=== PATIENT | male | born 1975 | race American Indian/Alaskan Native ===

== ENCOUNTER 2017-05-03 06:12 | Emergency (ER) | payer MEDICAID, OTHER ==
--- NOTE | 2017-05-03 08:25 | C.PDOC ---
History Of Present Illness 42 y/o male presents to ED with complaints of lower back pain. Patient states he missed a step and slipped this morning at 5AM. He reports he landed on his lower back, and his lower back hit the edge of the step. Denies head trauma, neck pain, abdominal pain, hematuria, weakness, numbness or any other physical complaint. Time Seen by Provider: 05/03/17 07:39 Chief Complaint (Nursing): Back Pain History Per: Patient History/Exam Limitations: no limitations Onset/Duration Of Symptoms: Hrs Current Symptoms Are (Timing): Still Present Quality Of Discomfort: Unable To Describe Previous Symptoms: None Associated Symptoms: None Exacerbating Factor(s): Nothing Recent travel outside of the [place]: No Past Medical History Reviewed: Historical Data, Nursing Documentation, Vital Signs Vital Signs: Last Vital Signs Temp 98.5 F 05/03/17 10:41 Pulse 70 05/03/17 10:41 Resp 18 05/03/17 10:41 BP 146/87 05/03/17 10:41 Pulse Ox 100 05/03/17 11:14 - Medical History PMH: No Chronic Diseases Surgical History: No Surg Hx Family History: States: No Known Family Hx - Social History Hx Alcohol Use: Yes Hx Substance Use: No - Immunization History Hx Tetanus Toxoid Vaccination: No Hx Influenza Vaccination: Yes Hx Pneumococcal Vaccination: No Review Of Systems Constitutional: Negative for: Fever, Chills Cardiovascular: Negative for: Chest Pain, Palpitations Respiratory: Negative for: Shortness of Breath Gastrointestinal: Negative for: Nausea, Vomiting, Abdominal Pain, Diarrhea Genitourinary: Negative for: Incontinence, Hematuria Musculoskeletal: Positive for: Back Pain (lower). Negative for: Neck Pain Skin: Negative for: Rash, Jaundice Neurological: Negative for: Weakness, Numbness Physical Exam - Physical Exam Appears: Well, Non-toxic Skin: Warm, Dry, No Ecchymosis Head: Atraumatic, Normacephalic Eye(s): bilateral: Normal Inspection Oral Mucosa: Moist Neck: No Midline Cervical Tenderness, Supple Chest: Symmetrical, No Tenderness Cardiovascular: Rhythm Regular, No Murmur Respiratory: No Decreased Breath Sounds, No Rales, No Rhonchi, No Wheezing Gastrointestinal/Abdominal: Soft, No Tenderness, No Distention, No Rebound Back: Vertebral Tenderness (lumbar area, no step off or crepitus noted, no bruising noted, skin intact. ), No Muscle Spasm, Paraspinal Tenderness ( bilateral lumbar area. ), Other Extremity: Normal ROM, No Tenderness, No Swelling Extremity: Bilateral: Normal Color And Temperature, Normal ROM Neurological/Psych: Oriented x3, Normal Speech, Normal Cognition, Normal Motor, Normal Sensation ED Course And Treatment O2 Sat by Pulse Oximetry: 100 (RA) Pulse Ox Interpretation: Normal - Other Rad Lumbar Spine X-Ray X-Ray: Viewed By Me, Read By Radiologist Interpretation: Lumbar spine three views. History: Back pain. Injury. Comparison: None available. Findings: Spine alignment is maintained. Vertebral body heights are preserved. Mild hypertrophy of the lower level facets of the lumbar spine. Impression: Degenerative changes. If pain persists, consider correlation with MRI. Medical Decision Making Medical Decision Making: Administered Motrin. Ordered X-rays. 1107 pm pt lying on stretcher comfortably; xray ls spine neg for fx, dc with ibuprofen. Disposition Counseled Patient/Family Regarding: Studies Performed, Diagnosis, Need For Followup, Rx Given - Disposition Referrals: [facility] [Outside] Disposition: HOME/ ROUTINE Disposition Time: 11:08 Condition: GOOD Additional Instructions: Put cold compresses on painful area for 15 minutes several times a day. Take ibupforen (with food) for pain if needed. Follow up in medical clinic. Prescriptions: Ibuprofen [Motrin] 600 mg PO TID #30 tab Instructions: Contusion (DC) Forms: [facility] (Serbian), General Discharge Instructions - Clinical Impression Clinical Impression: Low back pain, Fall on stairs - PA / TRANSMISSION AND COORDINATION ENGINEER / Resident Statement MD/DO has reviewed & agrees with the documentation as recorded. - Scribe Statement The provider has reviewed the documentation as recorded by the Harpreetibdarek Bahena All medical record entries made by the Alison were at my direction and personally dictated by me. I have reviewed the chart and agree that the record accurately reflects my personal performance of the history, physical exam, medical decision making, and the department course for this patient. I have also personally directed, reviewed, and agree with the discharge instructions and disposition.
--- NOTE | 2017-05-03 10:05 | RAD ---
Lumbar spine three views History: Back pain. Injury. Comparison: None available. Findings: Spine alignment is maintained. Vertebral body heights are preserved. Mild hypertrophy of the lower level facets of the lumbar spine. Impression: Degenerative changes. If pain persists, consider correlation with MRI.
[2017-05-03 10:42] VITALS: BP 146/87; PULSE 70; RESP 18; TEMP 98.5
[2017-05-03 11:07] VITALS: O2SAT 100
== END 2017-05-03 11:42 | disposition home or self-care (01) ==
LOC: C.ER 06:12
DX: M54.5 Low back pain (principal); W10.9XXA Fall (on) (from) unspecified stairs and steps, initial encounter